=== PATIENT | female | born 1995 | race African-American/Black ===

== ENCOUNTER 2017-05-04 00:32 | Inpatient (IN) ==
[2017-05-04] MEDS: LACTATED RINGERS 1,000 ML IV SCH ×2 (01:05→07:42)
[2017-05-04] MEDS ORDERED: BUTORPHANOL 2 MG/ML VIAL IV PRN (01:21)
[2017-05-04] MEDS ORDERED: ONDANSETRON 4 MG/2 ML VIAL IV PRN ×2 (01:21→17:09)
[2017-05-04] MEDS ORDERED: AMPICILLIN INJ 2,000 MG in SODIUM CHLORIDE 0.9% 100 ML IV ONE (01:25)
[2017-05-04] MEDS ORDERED: LACTATED RINGERS 1,000 ML IV SCH ×2 (01:30→17:09)
[2017-05-04 01:33] LABS: Basophils % 0.4 % (0.0-0.8); Eosinophils # 0.1 10*3/uL (0.0-0.87); Eosinophils % 1.8 % (0.00-10.9); Hematocrit 28.3 VOL% (35.7-47.0); Hemoglobin 9.4 GM/DL (12.0-16.0); Immature Granulocytes % 0.5 %; Immature Granulocytes Absolute 0.03 #; Lymphocytes # 1.7 10*3/uL (1.4-4.0); Lymphocytes % 29.9 % (21.3-54.2); Mean Corpuscular HGB Conc 33.2 GM/DL (32-36); Mean Corpuscular Hemoglobin 25 PG (27-34); Mean Corpuscular Volume 75.7 FL (87-102); Mean Platelet Volume 11.9 FL (9.6-12.0); Monocytes # 0.7 10*3/uL (0.11-0.8); Monocytes % 11.7 % (1.7-12.7); Neutrophils # 3.1 10*3/uL (1.4-7.4); Neutrophils % 55.7 % (38.7-73.9); Platelet Count 188 T/CUMM (130-400); Red Blood Count 3.74 MC/CUMM (3.8-5.5); Red Cell Distribution Width 12.8 % (9.3-17.3); White Blood Count 5.6 T/CUMM (4-12)
[2017-05-04] MEDS ORDERED: MEPERIDINE 50 MG/1 ML VIAL IV PRN (02:21)
[2017-05-04] MEDS: MEPERIDINE 50 MG/1 ML VIAL IV PRN ×2 (02:28→07:34)
[2017-05-04] MEDS: AMPICILLIN INJ 1,000 MG in SODIUM CHLORIDE 0.9% 100 ML IV SCH ×2 (05:36→09:22)
[2017-05-04] MEDS ORDERED: OXYTOCIN/LR 20 UNIT/1,000 ML BAG IV SCH (07:30)
[2017-05-04] MEDS ORDERED: LACTATED RINGERS 1,000 ML IV ONE (11:23)
[2017-05-04] MEDS ORDERED: FAMOTIDINE 20 MG/2 ML VIAL IV ONE (11:23)
[2017-05-04] MEDS ORDERED: CITRIC ACID/SODIUM CITRATE 30 ML UDCUP PO ONE (11:23)
[2017-05-04] MEDS ORDERED: diphenhydrAMINE 50 MG/1 ML VIAL IV PRN ×2 (11:24)
[2017-05-04] MEDS ORDERED: PROMETHAZINE 25 MG/1 ML VIAL IM ONE (11:24)
[2017-05-04] MEDS ORDERED: hydrOXYzine HCL 25 MG/1 ML VIAL IM PRN (11:24)
[2017-05-04] MEDS ORDERED: ePHEDrine 50 MG/ML AMP IV PRN (11:24)
[2017-05-04] MEDS ORDERED: fentaNYL 2 MCG/ROPIV 0.2% EPID 150 ML EPIDURAL SCH (11:30)
[2017-05-04] MEDS ORDERED: OXYTOCIN 10 UNIT/ML VIAL ONE (12:16)
[2017-05-04] MEDS ORDERED: OXYTOCIN/LR 30 UNIT/1,000 ML BAG IV ONE (12:18)
[2017-05-04] MEDS ORDERED: ceFAZolin 2,000 MG in PREMIX 1 EACH IV ONE (12:21)
[2017-05-04 14:01] LABS: Cord Arterial Blood HCO3 23.9 MMOL/L
[2017-05-04 14:04] LABS: Cord Venous Blood PCO2 43.6 MMHG
[2017-05-04 14:05] LABS: Apearance,Urine CLEAR (Clear); Bilirubin,Urine Negative (Negative); Blood, Urine Negative (Negative); Glucose,Urine (UA) Negative (Negative); Ketones,Urine Negative (Negative); Nitrite,Urine Negative (Negative); Protein,Urine Negative; RBC,Urine 2 /HPF (0-4); Urine Color Yellow (Yellow); Urine Specific Gravity 1.009 (1.001-1.035); WBC,Urine 1 /HPF (0-6)
[2017-05-04] MEDS ORDERED: MORPHINE 10 MG/10 ML VIAL ONE (14:07)
[2017-05-04] MEDS ORDERED: ONDANSETRON 4 MG/2 ML VIAL ONE (14:09)
[2017-05-04] MEDS ORDERED: RHO(D) IMMUNE GLOBULIN 300 MCG SYRINGE IM ONE (17:09)
[2017-05-04] MEDS ORDERED: ACETAMINOPHEN 325 MG TABLET PO PRN (17:09)
[2017-05-04] MEDS ORDERED: OXYTOCIN/LR 20 UNIT/1,000 ML BAG IV ONE (17:09)
[2017-05-04] MEDS ORDERED: SIMETHICONE CHEW 80 MG TABLET PO PRN (17:09)
[2017-05-04] MEDS ORDERED: ceFAZolin 1,000 MG in SYRINGE 1 EACH IV SCH (18:00)
[2017-05-04] MEDS ORDERED: diphenhydrAMINE CAP 25 MG CAPSULE PO PRN (19:29)
[2017-05-04] MEDS: DOCUSATE SODIUM 100 MG CAPSULE PO SCH (21:32)
[2017-05-04] MEDS: ceFAZolin 1,000 MG in SYRINGE 1 EACH IV SCH (21:33)
[2017-05-04 22:20] LABS: Basophils % 0.3 % (0.0-0.8); Eosinophils # 0.1 10*3/uL (0.0-0.87); Eosinophils % 0.8 % (0.00-10.9); Hematocrit 26.5 VOL% (35.7-47.0); Hemoglobin 8.8 GM/DL (12.0-16.0); Immature Granulocytes % 0.3 %; Immature Granulocytes Absolute 0.02 #; Lymphocytes # 1.6 10*3/uL (1.4-4.0); Lymphocytes % 25.3 % (21.3-54.2); Mean Corpuscular HGB Conc 33.2 GM/DL (32-36); Mean Corpuscular Hemoglobin 25 PG (27-34); Mean Corpuscular Volume 75.3 FL (87-102); Mean Platelet Volume 11.5 FL (9.6-12.0); Monocytes # 0.6 10*3/uL (0.11-0.8); Monocytes % 8.6 % (1.7-12.7); Neutrophils # 4.1 10*3/uL (1.4-7.4); Neutrophils % 64.7 % (38.7-73.9); Platelet Count 150 T/CUMM (130-400); Red Blood Count 3.52 MC/CUMM (3.8-5.5); Red Cell Distribution Width 12.8 % (9.3-17.3); White Blood Count 6.4 T/CUMM (4-12)
[2017-05-05] MEDS: ceFAZolin 1,000 MG in SYRINGE 1 EACH IV SCH (05:35)
[2017-05-05 07:05] LABS: Basophils % 0.6 % (0.0-0.8); Eosinophils # 0.1 10*3/uL (0.0-0.87); Hemoglobin 8.7 GM/DL (12.0-16.0); Immature Granulocytes % 0.3 %; Immature Granulocytes Absolute 0.02 #; Lymphocytes # 1.7 10*3/uL (1.4-4.0); Lymphocytes % 26.1 % (21.3-54.2); Mean Corpuscular HGB Conc 32.2 GM/DL (32-36); Mean Corpuscular Hemoglobin 25 PG (27-34); Mean Corpuscular Volume 76.5 FL (87-102); Mean Platelet Volume 11.6 FL (9.6-12.0); Monocytes # 0.4 10*3/uL (0.11-0.8); Monocytes % 6.7 % (1.7-12.7); Neutrophils # 4.1 10*3/uL (1.4-7.4); Neutrophils % 64.3 % (38.7-73.9); Platelet Count 158 T/CUMM (130-400); Red Blood Count 3.53 MC/CUMM (3.8-5.5); Red Cell Distribution Width 12.8 % (9.3-17.3); White Blood Count 6.4 T/CUMM (4-12)
[2017-05-05] MEDS: FERROUS SULFATE 325 MG TABLET PO SCH ×2 (08:54→20:55)
[2017-05-05] MEDS: MULTIVITAMIN (PRENATAL) TABLET PO SCH (08:54)
[2017-05-05] MEDS: MAGNESIUM HYDROXIDE SUSP 30 ML UDCUP PO PRN ×2 (08:54→20:54)
[2017-05-05] MEDS: DOCUSATE SODIUM 100 MG CAPSULE PO SCH ×2 (08:54→20:54)
[2017-05-05] MEDS: IBUPROFEN 800 MG TABLET PO PRN (20:55)
[2017-05-06] MEDS: FERROUS SULFATE 325 MG TABLET PO SCH ×2 (09:23→20:47)
[2017-05-06] MEDS: MULTIVITAMIN (PRENATAL) TABLET PO SCH (09:23)
[2017-05-06] MEDS: DOCUSATE SODIUM 100 MG CAPSULE PO SCH ×2 (09:23→20:47)
[2017-05-06] MEDS: IBUPROFEN 800 MG TABLET PO PRN (15:55)
[2017-05-06] MEDS: MAGNESIUM HYDROXIDE SUSP 30 ML UDCUP PO PRN (20:47)
[2017-05-07] MEDS: IBUPROFEN 800 MG TABLET PO PRN ×2 (01:14→13:00)
[2017-05-07 07:18] VITALS: BP 108/68
[2017-05-07] MEDS: MAGNESIUM HYDROXIDE SUSP 30 ML UDCUP PO PRN (09:27)
[2017-05-07] MEDS: DOCUSATE SODIUM 100 MG CAPSULE PO SCH (09:27)
[2017-05-07] MEDS: FERROUS SULFATE 325 MG TABLET PO SCH (09:27)
[2017-05-07] MEDS: MULTIVITAMIN (PRENATAL) TABLET PO SCH (09:27)
== END 2017-05-07 13:45 | disposition home or self-care (01) | DRG 540 ==
LOC: N.LDOUT 00:32 → N.LD 00:34 → N.OB 17:08
PROVIDERS: ADMIT Obstetrics & Gynecology; ATTEND Obstetrics & Gynecology
PROC: LDCSECT (ICD-10-PCS; 2017-05-04 12:45)

== ENCOUNTER 2019-07-15 20:43 | Inpatient (IN) ==
[2019-07-15 21:28] LABS: Apearance,Urine CLEAR (Clear); Bilirubin,Urine Negative (Negative); Blood, Urine Small mg/dL (Negative); Glucose,Urine (UA) Negative (Negative); Ketones,Urine Negative (Negative); Nitrite,Urine Negative (Negative); Protein,Urine Negative; RBC,Urine 1 /HPF (0-4); Squamous Epithelial Cell,Urine Occasional /HPF (0-10); Urine Color Yellow (Yellow); Urine Specific Gravity 1.006 (1.001-1.035); WBC,Urine 3 /HPF (0-6)
[2019-07-15] MEDS ORDERED: MEPERIDINE 50 MG/1 ML VIAL IV ONE (21:45)
[2019-07-15] MEDS ORDERED: ONDANSETRON 4 MG/2 ML VIAL IV ONE (21:46)
[2019-07-15 22:02] LABS: Basophils % 0.4 % (0.0-0.8); Eosinophils # 0.1 10*3/uL (0.0-0.87); Eosinophils % 1.1 % (0.00-10.9); Hemoglobin 7.6 GM/DL (12.0-16.0); Immature Granulocytes % 1.2 %; Lymphocytes # 2.2 10*3/uL (1.4-4.0); Lymphocytes % 27.3 % (21.3-54.2); Mean Corpuscular HGB Conc 30.4 GM/DL (32-36); Mean Corpuscular Volume 67.4 FL (87-102); Mean Platelet Volume 10.9 FL (9.6-12.0); Monocytes % 10.4 % (1.7-12.7); Neutrophils % 59.6 % (38.7-73.9); Platelet Count 178 T/CUMM (130-400); Red Blood Count 3.71 MC/CUMM (3.8-5.5); Red Cell Distribution Width 16.5 % (9.3-17.3); White Blood Count 8.1 T/CUMM (4-12)
[2019-07-15 22:23] LABS: Albumin 3.3 G/DL (3.4-5.0); Bilirubin,Total 0.6 MG/DL (0.2-1.0); Calcium 8.9 MG/DL (8.5-10.1); Osmolality,Calculated 262.4 MOS/KG (273-304); Total Protein 7.8 G/DL (6.4-8.3)
[2019-07-15] MEDS: LACTATED RINGERS 1,000 ML IV SCH (22:23)
[2019-07-16] MEDS: BUTORPHANOL 2 MG/ML VIAL IV PRN ×2 (01:31→05:40)
[2019-07-16] MEDS: LACTATED RINGERS 1,000 ML IV SCH ×2 (02:55→09:00)
[2019-07-16] MEDS ORDERED: LACTATED RINGERS 1,000 ML IV ONE (04:08)
[2019-07-16] MEDS ORDERED: FAMOTIDINE 20 MG/2 ML VIAL IV ONE (04:08)
[2019-07-16] MEDS ORDERED: ceFAZolin 2,000 MG in PREMIX 1 EACH IV ONE (04:10)
[2019-07-16] MEDS ORDERED: OXYTOCIN/LR 30 UNIT/1,000 ML BAG IV ONE (04:11)
[2019-07-16] MEDS ORDERED: OXYTOCIN 10 UNIT/ML VIAL IM ONE (04:11)
[2019-07-16] MEDS ORDERED: ONDANSETRON 4 MG/2 ML VIAL ONE (05:30)
[2019-07-16] MEDS ORDERED: ONDANSETRON 4 MG/2 ML VIAL IV ONE (05:31)
[2019-07-16] MEDS: CITRIC ACID/SODIUM CITRATE 30 ML UDCUP PO ONE ×2 (08:23→08:42)
[2019-07-16] MEDS ORDERED: SODIUM CHLORIDE 0.9% 1,000 ML IV PRN (09:03)
[2019-07-16 10:07] LABS: Cord Arterial Blood HCO3 24.8 MMOL/L
[2019-07-16] MEDS ORDERED: ONDANSETRON 4 MG/2 ML VIAL IV PRN (10:08)
[2019-07-16] MEDS ORDERED: OXYTOCIN/LR 20 UNIT/1,000 ML BAG IV ONE (10:08)
[2019-07-16] MEDS ORDERED: RHO(D) IMMUNE GLOBULIN 300 MCG SYRINGE IM ONE (10:08)
[2019-07-16] MEDS ORDERED: ACETAMINOPHEN 325 MG TABLET PO PRN (10:08)
[2019-07-16] MEDS ORDERED: LACTATED RINGERS 1,000 ML IV SCH (10:30)
[2019-07-16] MEDS ORDERED: fentaNYL 100 MCG/2 ML VIAL ONE (11:02)
[2019-07-16] MEDS ORDERED: MORPHINE 10 MG/10 ML VIAL ONE (11:02)
[2019-07-16] MEDS ORDERED: BUPIVACAINE SPINAL 0.75% 2 ML AMP SPINAL ONE (11:04)
[2019-07-16] MEDS ORDERED: PHENYLEPHRINE 1 MG/10 ML SYRINGE IV ONE (11:04)
[2019-07-16] MEDS ORDERED: BUPIVACAINE MPF 0.25% 30 ML VIAL ONE (11:25)
[2019-07-16 11:26] LABS: Apearance,Urine CLEAR (Clear); Bacteria,Urine Occasional /HPF (Few); Bilirubin,Urine Negative (Negative); Blood, Urine Negative (Negative); Glucose,Urine (UA) Negative (Negative); Ketones,Urine Negative (Negative); Mucus,Urine Occasional /LPF (Occasional); Nitrite,Urine Negative (Negative); Protein,Urine Negative; RBC,Urine <1 /HPF (0-4); Squamous Epithelial Cell,Urine Occasional /HPF (0-10); Urine Color Straw (Yellow); Urine Specific Gravity 1.003 (1.001-1.035); Urine Urobilinogen < 2.0 EU/DL (0.2-1.0)
[2019-07-16] MEDS: diphenhydrAMINE 50 MG/1 ML VIAL IV PRN (14:57)
[2019-07-16] MEDS ORDERED: ceFAZolin 1,000 MG in SYRINGE 1 EACH IV SCH (17:00)
[2019-07-16] MEDS ORDERED: SODIUM CHLORIDE 0.9% 100 ML IV ONE (19:08)
[2019-07-16] MEDS: DOCUSATE SODIUM 100 MG CAPSULE PO SCH (22:00)
[2019-07-17] MEDS: diphenhydrAMINE 50 MG/1 ML VIAL IV PRN (00:15)
[2019-07-17 05:41] LABS: Basophils # 0.1 10*3/uL (0.0-0.2); Basophils % 0.5 % (0.0-0.8); Eosinophils # 0.1 10*3/uL (0.0-0.87); Eosinophils % 1.3 % (0.00-10.9); Hematocrit 27.6 VOL% (35.7-47.0); Hemoglobin 8.5 GM/DL (12.0-16.0); Immature Granulocytes % 0.5 %; Immature Granulocytes Absolute 0.05 #; Lymphocytes # 2.1 10*3/uL (1.4-4.0); Lymphocytes % 19.8 % (21.3-54.2); Mean Corpuscular HGB Conc 30.8 GM/DL (32-36); Monocytes % 5.8 % (1.7-12.7); Neutrophils % 72.1 % (38.7-73.9); Platelet Count 171 T/CUMM (130-400); Red Blood Count 3.89 MC/CUMM (3.8-5.5); Red Cell Distribution Width 18.4 % (9.3-17.3); White Blood Count 10.8 T/CUMM (4-12)
[2019-07-17 06:08] LABS: Hypochromasia 1+; Platelet Estimate Adequate
[2019-07-17] MEDS: MULTIVITAMIN (PRENATAL) TABLET PO SCH (08:53)
[2019-07-17] MEDS: DOCUSATE SODIUM 100 MG CAPSULE PO SCH ×2 (08:53→20:58)
[2019-07-17] MEDS: FERROUS SULFATE 325 MG TABLET PO SCH ×2 (09:40→20:58)
[2019-07-17] MEDS: METOCLOPRAMIDE 10 MG TABLET PO SCH ×2 (09:40→17:30)
[2019-07-17] MEDS: MAGNESIUM HYDROXIDE SUSP 30 ML UDCUP PO PRN ×2 (09:40→20:58)
[2019-07-17] MEDS: IBUPROFEN 800 MG TABLET PO PRN (14:47)
[2019-07-17] MEDS: SIMETHICONE CHEW 80 MG TABLET PO PRN ×2 (14:49→23:15)
[2019-07-17] MEDS ORDERED: BISACODYL 10 MG SUPP RECTAL PRN (20:41)
[2019-07-18] MEDS: METOCLOPRAMIDE 10 MG TABLET PO SCH (02:37)
[2019-07-18 07:39] VITALS: BP 116/66
[2019-07-18] MEDS: IBUPROFEN 800 MG TABLET PO PRN (08:02)
[2019-07-18] MEDS: FERROUS SULFATE 325 MG TABLET PO SCH (08:53)
[2019-07-18] MEDS: MULTIVITAMIN (PRENATAL) TABLET PO SCH (08:53)
[2019-07-18] MEDS: DOCUSATE SODIUM 100 MG CAPSULE PO SCH (08:53)
== END 2019-07-18 12:10 | disposition home or self-care (01) | DRG 540 ==
LOC: N.LDOUT 20:43 → N.LD 20:45 → N.OB 07-17 09:00
PROVIDERS: ADMIT Obstetrics & Gynecology; ATTEND Obstetrics & Gynecology
PROC: LDCSECT (ICD-10-PCS; 2019-07-16 05:00)